=== PATIENT | female | born 1955 | race Caucasian/White ===

== ENCOUNTER 2020-06-20 11:15 | Emergency (ER) | payer MEDICARE, OTHER, SELFPAY ==
[2020-06-20 11:20] VITALS: BP 158/91; PULSE 83; RESP 20; TEMP 36.9; O2SAT 97; BMI 27.4
--- NOTE | 2020-06-20 11:40 | PC.NURSE ---
PATIENT SENT TO ER PER ALHAJI LYLES APRN FOR FURTHER EVALUATION
--- NOTE | 2020-06-20 11:43 | HMH.EDUTC ---
[facility] [place] Clinical Impression: Hypertension Qualifiers: Hypertension type: unspecified Qualified Code(s): I10 - Essential (primary) hypertension Disposition: Still a Patient Condition on Discharge: Fair Referrals: PCP,Jamila [Primary Care Provider] - Time of Disposition: 11:53 Medical Decision Making - Abiodun Inquiry Pt receiving controlled substance: No Abiodun was queried for this patient: No Vital Signs: 06/20/20 11:20 Temperature 98.4 F Temperature Source Oral Pulse Rate [Left Brachial] 83 Respiratory Rate 20 Blood Pressure [Left Arm] 158/91 H Blood Pressure Mean [Left Arm] 113 Blood Pressure Source [Left Arm] Automatic Cuff Blood Pressure Position [Left Arm] Sitting 02 Sat by Pulse Oximetry 97 Oxygen Delivery Method Room Air Medical Decision Narrative: Due to patient being symptomatic, complaining of feeling off, light flashes in left eye and heavy feeling in arms recommended that patient be transferred to the ED for further work up and evaluation Patient agreed called ED and spoke with Yoana Patient transferred to room 7 without complications or reactions for further treatment and work up [facility] [place] - General Stated complaint: BP elevated Time Seen by Provider: 06/20/20 11:43 Mode of Arrival: Ambulatory Source of Information: Patient Limitations: No Limitations Description of Symptoms (Recalled from Triage Doc. by RN): PATIENT C/O ELEVATED BLOOD PRESSURE FOR THE PAST 3 DAYS. SHE STATES SHE HAS BEEN HAVING HEADACHES, HER ARMS FEEL HEAVY, AND YESTERDAY SHE WAS SEEING A LIGHT FLASHING OUT OF CORNER OF LEFT EYE; SHE SAYS SHE DOESN'T FEEL RIGHT . SHE HAS BEEN TAKING LEFT-OVER LOSARTAN FROM WHEN SHE WAS PREVIOUSLY TREATED FOR HYPERTENSION A FEW YEARS AGO HEENT Symptoms (Recalled from RN notes): Yes Resp Symptoms (Recalled from RN notes): No Skin Symptoms (Recalled from RN notes): No MS Symptoms (Recalled from RN notes): No Functional Status (Recalled from RN notes): WNL - History of Present Illness Provider Complaint: Patient state that she was treated a few years ago for HTN States that she was Losartan States that she lost weight and her blood pressure came down so her PCP took her off her blood pressure medication States that a few months ago she noticed she wasnt feeling right so she started checking her blood pressure again and noticed it was high so she started taking the left over blood pressure medication she had at home and did not see her PCP States that for the last couple of days she has been having headache, seeing floaters and light flashes in the corner of her left eye, feeling tired and arms feeling heavy and not feeling right in her head States that she was worried this morning when she was feeling off so she called and couldnt get in to her PCP so she came in here - Related Data Home Medications Medication Instructions Recorded Confirmed losartan 25 mg tablet 25 mg PO DAILY 06/26/18 06/26/18 Previous Rx's Medication Instructions Recorded azithromycin 250 mg tablet 250 mg PO QDAY 5 Days #6 tab 06/26/18 Allergies Allergy/AdvReac Type Severity Reaction Status Date / Time acetaminophen [From Percocet] Allergy Verified 06/26/18 11:31 amoxicillin [From Augmentin] Allergy Verified 06/26/18 11:30 clavulanic acid Allergy Verified 06/26/18 11:30 [From Augmentin] oxycodone [From Percocet] Allergy Verified 06/26/18 11:31 - Worker's Comp Is this a Worker's Comp case?: No [facility] History - Hepatitis A Screen Drug use history?: No High risk sexual behaviors?: No History of sexually transmitted infection?: No Currently employed?: No Childcare worker?: No Do you have indoor plumbing?: Yes Do you have electricity?: Yes Attestation statement:: This patient has been screened for Hepatitis A risk factors. I have reviewed the patient's past medical history: Yes Medical History: Denies:: Cancer, Diabetes Mellitus Type 1, Diabetes Mellitus Type 2, MRSA Amputat
[2020-06-20 12:00] VITALS: BP 165/93; PULSE 83; O2SAT 97
[2020-06-20 12:01] VITALS: BP 184/87; PULSE 71; RESP 20; O2SAT 98; BMI 27.4
--- NOTE | 2020-06-20 12:05 | ECG_ITS ---
APPROVED REPORT Exam: Resting ECG HR:72 bpm ECG Measurements Heart Rate 72 AXES VA 142 P 70 QRSd 72 QRS 12 QT 380 T 51 QTc 416 Conclusion Normal sinus rhythm Normal ECG Electronically signed by : Angel Reyez, 06/24/2020 17:47:34
--- NOTE | 2020-06-20 12:05 | CT_ITS ---
PROCEDURE: CT HEAD/BRAIN WO CON Referring Doctor: Chirag Perkins Patient Age:64Y CLINICAL INDICATION: headache/ weakness Left eye pain. Left sided side pain. Smoker. COMPARISON: No exams were available for comparison TECHNIQUE: No IV contrast Standard axial images were initially obtained . Due to note area density at geraldine felt to be streak artifact a follow-up spiral CT of the head was performed with axial, thick MIP sagittal and coronal reconstructions of from this 2nd image set submitted for review as well the. All CT scans at the facility use one or more dose reduction, viz: automated exposure control, ma/kV adjustment per patient size (including targeted exams where dose is matched to indication, i.e. head), or iterative reconstruction technique. FINDINGS: No acute intracranial findings.No territorial infarct No discrete intracranial hemorrhage. No hydrocephalus.The ventricles and basal cisterns appear clear and satisfactory. No mass or midline shift nor mass effect. Minimal tiny physiologic calcification basal ganglia bilaterally most evident on right. Question some borderline low-density changes could reflect some subtle chronic deep white matter changes but equivocal. No subdural or extra-axial fluid collection is evident. Posterior fossa. Cerebellar hemispheres appear normal. On the initial scan there is a linear area increased density central geraldine on axial image 15 which was felt to be due to streak artifact from the dense petrous ridges particularly given the linear character. However given the history of hypertension in the overall symptoms in this patient we did have her come back up for a spiral CT of the head which inherently reduces streak artifact. With these repeat images the the geraldine appears normal and is linear dense artifact through the geraldine went away. Geraldine appears normal on this repeat sequence Skull intact- calvarium unremarkable appearance. Nomastoid effusions. Mastoid air cells are well developed and clear. Middle ear clear. IAC's symmetric. Paranasal sinuses. Only barely evident scant mucosal thickening a suggested posterior left frontal sinus axial image 14, [address] on the initial head CT,. With only borderline/scant mucosal thickening ethmoid air cells.. Small 11 mm retention cyst at floor right maxillary sinus noted with only very subtle a mucosal thickening thickening along lateral wall and near ostia of right maxillary sinus. No prominent findings at the paranasal sinuses. No air-fluid levels The left orbit and left globe unremarkable on these CT survey images IMPRESSION: No acute intracranial findings. (Because of a curious linear high density feature at geraldine felt due to streak artifact on the initial standard CT head study, a repeat spiral CT head scan was performed to confirm this impression. The geraldine and posterior fossa and entire brain appear satisfactory on the repeat spiral CT head. Only tiny scant and significant physiologic calcification of basal ganglia bilaterally noted on both scans) . Dictated by: Hugo Mcconnell MD 06/20/2020 13:26 Hugo Mcconnell MD in [place] 06/20/2020 13:26
--- NOTE | 2020-06-20 12:05 | XR_ITS ---
PROCEDURE: XR CHEST 2V Referring Doctor: Chirag Perkins Patient Age:64Y CLINICAL HISTORY: weakness Weakness smoker high blood pressure COMPARISON: No exams were available for comparison FINDINGS: The lungs are well expanded and clear with nothing definitely acute. No pleural effusion, no pneumothorax. Only note minor coarsening markings suggests which may reflect some minor chronic changes related to history of smoking but nothing. The heart is upper normal in size. Normal to upper normal pulmonary vascularity . The arabella and mediastinal structures satisfactory. Calcified granuloma at the right mid lung measuring 6.5 mm. Reflects benign old granulomatous disease but Chest wall in T-spine appears satisfactory. Faint atherosclerotic calcification aorta. . IMPRESSION: Nothing definitely acute Suggestion minor chronic lung changes likely reflecting history of smoking, the with subtle coarsening markings bilaterally Heart upper normal in size.. Upper normal pulmonary vascularity Dictated by: Hugo Mcconnell MD 06/20/2020 16:12 Hugo Mcconnell MD in [place] 06/20/2020 16:12
--- NOTE | 2020-06-20 12:20 | PC.NURSE ---
pt to rad
[2020-06-20 12:31] LABS: Basophils % 0.5 % (0.1-2.0); Eosinophils # 0.2 K/mm3 (0.0-0.4); Eosinophils % 3.2 % (0.1-12.0); Hematocrit 41.6 % (37.0-47.0); Hemoglobin 13.2 g/dL (12.2-16.2); Lymphocytes # 1.6 K/mm3 (0.7-4.5); Lymphocytes % 29.2 % (10-50); Mean Corpuscular HGB Conc 31.8 g/dL (31.8-35.4); Mean Corpuscular Hemoglobin 29.4 pg (27.0-31.2); Mean Corpuscular Volume 92.4 fl (81-99); Mean Platelet Volume 8.1 fl (7.4-10.4); Monocytes # 0.3 K/mm3 (0.1-1.0); Monocytes % 5.4 % (1.7-9.3); Neutrophils # 3.3 K/mm3 (1.8-7.8); Neutrophils % 61.6 % (37.0-80.0); Platelet Count 286 K/mm3 (142-424); Red Cell Distribution Width 13.9 % (11.5-17.5); White Blood Count 5.4 K/mm3 (4.8-10.8)
[2020-06-20 12:32] LABS: Chloride 108 mmol/L (98-107); Sodium 138 mmol/L (136-145)
[2020-06-20 12:35] LABS: Alanine Aminotransferase 32 U/L (12-78); Albumin Level 4.4 g/dl (3.5-5.0); Albumin/Globulin Ratio 1.5 (1.1-1.8); Alkaline Phosphatase 74 U/L (38-126); Aspartate Amino Transferase 27 U/L (14-36); Bilirubin,Total 0.6 mg/dl (0.2-1.3); Blood Urea Nitrogen 12 mg/dl (7-17); Calcium 9.6 mg/dl (8.4-10.2); Carbon Dioxide 26 mmol/L (22.0-30.0); Creatinine Clearance Estimated 59 mL/min (50-200); Estimated Glomerular Filt Rate 100 ml/min (>60); GFR (African American) 121 ML/MIN (>60); Glucose 122 mg/dl (74-100); Total Protein,Serum 7.4 g/dl (6.3-8.2)
[2020-06-20 12:50] LABS: Troponin I < 0.01 ng/ml (0.00-0.034)
[2020-06-20 13:01] VITALS: BP 142/80; PULSE 70; O2SAT 95
[2020-06-20 14:00] VITALS: BP 130/69; PULSE 62; RESP 20; O2SAT 95
--- NOTE | 2020-06-20 14:19 | HMH.EDGENADL ---
ED Disposition Clinical Impression: Hypertension Qualifiers: Hypertension type: unspecified Qualified Code(s): I10 - Essential (primary) hypertension Migraine Qualifiers: Migraine type: without aura Status migrainosus presence: without status migrainosus Intractability: not intractable Qualified Code(s): G43.009 - Migraine without aura, not intractable, without status migrainosus Disposition: Home, Self-Care Condition on Discharge: Good Instructions: Hypertension (Alternative Therapy) Referrals: PCP,No [Primary Care Provider] - Angel Reyez MD [Staff Physician] - - Critical Care Critical Care Time: No Attestation: On 06/20/20, the high probability of a clinically significant, sudden or life threatening deterioration of the following system(s) required my full and direct attention, intervention and personal management. The time I documented below is in addition to time spent performing reported procedures but includes the following listed in this critical care notation. Medical Decision Making - Medical Records Medical records reviewed: Yes: I reviewed the patient's medical records. - Abiodun Inquiry Pt receiving controlled substance: No Vital Signs: 06/20/20 11:20 06/20/20 12:00 06/20/20 12:01 Temperature 98.4 F Temperature Source Oral Pulse Rate [Left Brachial] 83 83 71 Respiratory Rate 20 20 Blood Pressure [Left Arm] 158/91 H 165/93 H 184/87 H Blood Pressure Mean [Left Arm] 113 117 119 Blood Pressure Source [Left Arm] Automatic Cuff Automatic Cuff Automatic Cuff Blood Pressure Position [Left Arm] Sitting Sitting Sitting 02 Sat by Pulse Oximetry 97 97 98 Oxygen Delivery Method Room Air Room Air Room Air 06/20/20 13:01 06/20/20 14:00 Temperature Temperature Source Pulse Rate [Left Brachial] 70 62 Respiratory Rate 20 Blood Pressure [Left Arm] 142/80 H 130/69 Blood Pressure Mean [Left Arm] 100 89 Blood Pressure Source [Left Arm] Automatic Cuff Blood Pressure Position [Left Arm] Sitting 02 Sat by Pulse Oximetry 95 95 Oxygen Delivery Method Room Air Room Air - Lab Data Lab Results 06/20/20 12:15: WBC 5.4, RBC 4.50, Hgb 13.2, Hct 41.6, MCV 92.4, MCH 29.4, MCHC 31.8, RDW 13.9, Plt Count 286, MPV 8.1, Neut % (Auto) 61.6, Lymph % (Auto) 29.2, [place] % (Auto) 5.4, Eos % (Auto) 3.2, Baso % (Auto) 0.5, Neut # (Auto) 3.3, Lymph # (Auto) 1.6, [place] # (Auto) 0.3, Eos # (Auto) 0.2, Baso # (Auto) 0.0 06/20/20 12:15: Sodium 138, Potassium 4.0, Chloride 108 H, Carbon Dioxide 26, Anion Gap 8.0, BUN 12, Creatinine 0.60, Estimated Creat Clear 59, Estimated GFR 100, Est GFR ( Amer) 121, Glucose 122 H, Calcium 9.6, Total Bilirubin 0.6, AST 27, ALT 32, Alkaline Phosphatase 74, Troponin I < 0.01, Total Protein 7.4, Albumin 4.4, Globulin 3.0, Albumin/Globulin Ratio 1.5 Result diagrams: 06/20/20 12:15 06/20/20 12:15 Orders (Tests/Meds): ORDERS Category Date Time Status XR chest 2V Stat Exams 06/20/20 12:05 Taken Troponin I Q3H Lab 06/20/20 15:15 Ordered Troponin I Q3H Lab 06/20/20 18:15 Ordered - Radiology Data #1 Image(s): Chest Image Reviewed: Yes I reviewed the patient's radiology results, Yes I have reviewed radiologist's interpretation Preliminary Findings: Normal/NAD - CT Data CT Scan: Head Time Received: 14:[address] Reviewed: Yes: I have reviewed the patient's CT results, I have viewed the radiologist's interpretation Preliminary Findings: Normal/NAD - ECG Data Tracing #1 I reviewed this ECG and interpreted as documented below: ECG initial impression date: 06/20/20 ECG initial impression time: 12:07 ECG normal with no acute: arrhythmias, ischemia, conduction abnormalities, chamber hypertrophy - Reevaluation(s) Time: 14:31 Reevaluation #1: On reevaluation, patient is feeling better. Blood pressure is improved. Repeat neurologic exam is normal. Patient needs follow-up with PCP. Given strict return precautions. Verbalized understanding. Medical
[2020-06-20 14:36] VITALS: BP 130/69; PULSE 62; RESP 20; TEMP 36.9; O2SAT 95
== END 2020-06-20 14:38 | disposition home or self-care (01) ==
LOC: UTC 11:53 → ER 11:58
PROVIDERS: Emergency Provider Emergency Medicine
DX: G43.009 Migraine without aura, not intractable, without status migrainosus (principal); I10 Essential (primary) hypertension; F17.210 Nicotine dependence, cigarettes, uncomplicated; Z88.5 Allergy status to narcotic agent
CPT/HCPCS: 70450; 71046; 80053; 84484; 85025; 93005; 99283

== ENCOUNTER → 2020-08-05 10:08 | Outpatient (CLI) | payer MEDICARE, OTHER, SELFPAY ==
[2020-08-05 11:00] LABS: Coronavirus 19 IgG Antibody Negative (Negative); Coronavirus 19 IgM Antibody Negative (Negative)
== END ==
PROVIDERS: Visit Provider Internal Medicine Gastroenterology
DX: Z01.812 Encounter for preprocedural laboratory examination (principal); Z20.822 Contact with and (suspected) exposure to COVID-19; Z12.11 Encounter for screening for malignant neoplasm of colon
CPT/HCPCS: 36415; 86328

== ENCOUNTER 2020-08-07 09:54 | Day surgery (SDC) | payer MEDICARE, OTHER, SELFPAY ==
[2020-08-05 14:07] VITALS: BMI 28.3
[2020-08-07 10:10] VITALS: BP 125/76; PULSE 72; RESP 18; TEMP 36.3; O2SAT 96
[2020-08-07 10:52] VITALS: O2SAT 98
--- NOTE | 2020-08-07 10:54 | HMH.ANESCL ---
[facility] Anesthesia Checklist - Structural Data Admitted From: Home Planned Operative Procedure/s: colonoscopy Consent for Planned Operative Procedure(s) Verified: Yes - Airway Assessment C-Spine Mobility Assessed: Yes TMJ Mobility Assessed: Yes Dentition: Good Dentition - Neurological Assessment Level of Consciousness: Awake, Alert, Appropriate - Anesthesia Plan Anesthesia Risk discussed: Yes Anesthesia Plan: Verified ASA Class: II Anesthesia Type: MAC [facility] History I have reviewed the patient's past medical history: Yes Medical History: Reports:: Cancer (skin) Denies:: Diabetes Mellitus Type 1, Diabetes Mellitus Type 2, Internal Pacemaker, MRSA, Seizures *Have you ever received a pneumonia vaccine?: No *Have you received a flu vaccine this season?: No Anesthesia experience/problems:: none Other Surgeries: No: Pacemaker Amputation: No Fractures: No - *Social History Last grade of school completed: High school graduate Smoking Status: Current every day smoker Tobacco Type: cigarettes # Packs/Day (cigarettes): 1 Alcohol Intake: never Substance Use Type: denies use *Occupational Status:: retired Housing: house Household Members: none *Travel in the last 8 weeks: None Family Hx:: Non-contributory
--- NOTE | 2020-08-07 11:22 | P.PCN_ITS ---
[facility] Procedure Note Procedure Note:: Colonoscopy Procedure Report: Colonoscopy with cold snare polypectomy Endoscopist: Ilya Sampson II, MD Referring physician: VICTORINO Martinez Date of Procedure: August 07, 2020 Equipment: Olympus 190 variable stiffness pediatric colonoscope Sedation: MAC sedation Indication: Mrs. Reese is a 64-year-old female who is here for follow-up screening/surveillance colonoscopy. The patient did have a colonoscopy with sc 15 or 16 years ago. She reports having some more recent left lower abdominal pain and diverticulitis. The patient reports no rectal bleeding, weight loss or family history of colon cancer. Procedure: Prior to the procedure, a history and physical exam was performed, and patient's medications and allergies were reviewed. The risks, benefits and alternatives of the sedation and procedure were discussed with the patient. All questions were answered and informed consent was obtained. The patient was brought to the procedure room. Patient identification and proposed procedure were verified by the physician and the nurse. The patient was placed in a left lateral decubitus position and the scope was passed under direct vision. Throughout the procedure, the patient's blood pressure, pulse, and oxygen saturations were monitored continuously. The colonoscopy was accomplished without difficulty. The patient tolerated the procedure well. Findings: On digital rectal examination there was normal rectal tone. There were no external hemorrhoids. The colonoscope was introduced through the anal canal to the rectum and advanced to the cecum. The ileocecal valve and appendiceal orifice were identified. The scope was advanced a short distance into the ileum which appeared grossly normal. The scope was then withdrawn into the colon. The cecum, ascending and transverse colon and mucosa were grossly normal. There were some lipomas x2 of the proximal ascending colon. There were scattered extensive diverticuli throughout the descending and sigmoid colon (LEFT colon). There was a rectosigmoid polyp (6 to 7 mm) removed via cold snare polypectomy. The rectum itself was normal. Upon retroflexion within the rectum there were grade 1-2 internal hemorrhoids. The preparation was excellent throughout with [place] Preparation Score of 9. The cecal time was 12 minutes. Impression: 1. Rectosigmoid polyp 2. Left-sided diverticulosis 3. Ascending colon lipoma 4. Grade 1-2 internal hemorrhoids Plan: I will follow up the polyp pathology and recommend repeat colonoscopy again in 7-10 years based upon the polyp histology. I would encourage bulking fiber supplementation on a long-term daily maintenance basis.
[2020-08-07 11:25] VITALS: BP 88/47; PULSE 75; RESP 18; TEMP 36.1; O2SAT 94
[2020-08-07 11:35] VITALS: BP 98/53; PULSE 64; RESP 18; O2SAT 97
[2020-08-07 11:45] VITALS: BP 113/84; PULSE 59; RESP 18; O2SAT 97
[2020-08-07 12:14] VITALS: BP 103/64; PULSE 64; RESP 18; O2SAT 100
== END 2020-08-07 12:15 | disposition home or self-care (01) ==
LOC: OUTP 09:57
PROVIDERS: PCP Nurse Practitioner; Visit Provider Internal Medicine Gastroenterology
PROC: 0DJD8ZZ Inspection of Lower Intestinal Tract, Via Natural or Artificial Opening Endoscopic (ICD-10-PCS; CPT 45378; principal; 2020-08-07 11:00)
DX: Z12.11 Encounter for screening for malignant neoplasm of colon (principal); K64.0 First degree hemorrhoids; K63.5 Polyp of colon; K57.30 Diverticulosis of large intestine without perforation or abscess without bleeding; D17.79 Benign lipomatous neoplasm of other sites; Z87.19 Personal history of other diseases of the digestive system; Z85.828 Personal history of other malignant neoplasm of skin; Z72.0 Tobacco use
CPT/HCPCS: 45385; 88305

== ENCOUNTER 2022-04-09 10:07 | Emergency (ER) | payer MEDICARE, OTHER, SELFPAY ==
[2022-04-09 10:45] VITALS: BP 142/75; PULSE 79; RESP 20; TEMP 37; O2SAT 97; BMI 29.2
--- NOTE | 2022-04-09 11:20 | EXP.UTC ---
Discharge Plan Disposition Patient Disposition: Home, Self-Care Condition: Good Prescriptions Prescriptions: New cephalexin [cephalexin] 500 mg tablet 500 mg PO BID 7 Days Qty: 14 0RF prednisone [prednisone] 20 mg tablet 20 mg PO BID Qty: 10 0RF No Action losartan 25 mg tablet 25 mg PO DAILY Referrals Follow up/Referrals: Michelle Shaw APRN [Primary Care Provider] - See instructions Activity Restrictions/Add. Instructions Additional Instructions/Restrictions: Start antibiotic as soon as possible and be sure to take as ordered for full length of time even though he should start feeling better in 24-48 hours. Tylenol or Motrin as needed for pain or fever Encourage fluids, water, Gatorade, Powerade, Pedialyte if infant/toddler/child Warm compresses often helps when placed over ear Return immediately for new or worsening symptoms no noticeable improvement in 48-72 hours and in 10-14 days to ensure the ears are return to baseline. Follow-up with primary care Clinical Impressions Clinical Impression: Otitis media Instructions Patient Instructions: Middle Ear Infection Discharge ED Provider: Barbi ([facility])[place] [facility] [place] General Stated complaint: cough, vomiting, ear pain, nausea, lung pain Mode of Arrival: Ambulatory Source of Information: Patient Limitations: No Limitations Time Seen by Provider: 04/09/22 11:20 Description of Symptoms (Recalled from Triage Doc. by RN): PATIENT C/O COUGH, VOMITING (D/T COUGH), BODY ACHES, EAR PAIN AND SINUS PAIN SINCE MONDAY NIGHT HEENT Symptoms (Recalled from RN notes): Yes Resp Symptoms (Recalled from RN notes): Yes Skin Symptoms (Recalled from RN notes): No MS Symptoms (Recalled from RN notes): No Functional Status (Recalled from RN notes): WNL History of Present Illness Provider Complaint: 66 yr old female presents for cough, clear congestion, sore throat, rt ear pain and vomiting due to cough Related Data Home Medications Medication Instructions Recorded Confirmed losartan 25 mg tablet 25 mg PO DAILY Hypertension 06/26/18 04/09/22 Previous Rx's Medication Instructions Recorded cephalexin 500 mg tablet 500 mg PO BID 7 days #14 tabs 04/09/22 prednisone 20 mg tablet 20 mg PO BID #10 tabs 04/09/22 Allergies Allergy/AdvReac Type Severity Reaction Status Date / Time acetaminophen [From Percocet] Allergy Verified 08/05/20 14:06 amoxicillin [From Augmentin] Allergy Verified 08/05/20 14:06 clavulanic acid Allergy Verified 08/05/20 14:06 [From Augmentin] oxycodone [From Percocet] Allergy Verified 08/05/20 14:06 Worker's Comp Is this a Worker's Comp case?: No [facility] Disclaimer: The information contained in this section may have been updated after the patient was seen, as this information can be updated by other users. Medical History (Reviewed 04/09/22 @ 11:21 by Eula Landon ([facility]), [employer]) Hypertension Surgical History (Reviewed 04/09/22 @ :21 by Eula Landon ([facility]), [employer]) History of hysterectomy Social History (Reviewed 04/09/22 @ 11:21 by Eula Landon ([facility]), P[employer]) Smoking Status: Current every day smoker tobacco type: cigarettes packs per day: 1 alcohol intake: never substance use type: denies use current occupational status: retired Travel in the last 8 weeks: None household members: none housing: house current occupational exposures/hazards: No caffeine: Yes ROS Obtained: Yes All systems reviewed & no additional complaints except as documented Constitutional Constitutional: Reports system reviewed and no additional complaints, except as documented, Reports body ache and Reports fever(s) Eyes Eyes: Reports system reviewed and no additional complaints, except as documented ENT Ears, Nose, Mouth, and Throat: Reports system reviewed and no additional complaints, except as documented, Reports as per HPI, Reports otalgia, Reports sinus pain, Reports sinus pressure and Reports sore
[2022-04-09 11:35] VITALS: BP 142/75; PULSE 79; RESP 20; TEMP 37; O2SAT 97
== END 2022-04-09 11:37 | disposition home or self-care (01) ==
PROVIDERS: Emergency Provider Nurse Practitioner Family; PCP Nurse Practitioner
DX: H66.90 Otitis media, unspecified, unspecified ear (principal)
CPT/HCPCS: 99212; G0463

== ENCOUNTER → 2023-01-26 10:17 | Outpatient (CLI) | payer MEDICARE, OTHER, SELFPAY ==
[2023-01-26 10:53] LABS: Basophils % 0.5 % (0.1-2.0); Eosinophils # 0.3 K/mm3 (0.0-0.4); Eosinophils % 3.1 % (0.1-12.0); Hematocrit 46.9 % (37.0-47.0); Hemoglobin 15.3 g/dL (12.2-16.2); Lymphocytes # 2.3 K/mm3 (0.7-4.5); Lymphocytes % 29.2 % (10-50); Mean Corpuscular HGB Conc 32.6 g/dL (31.8-35.4); Mean Corpuscular Hemoglobin 29.5 pg (27.0-31.2); Mean Corpuscular Volume 90.6 fl (81-99); Mean Platelet Volume 8.2 fl (7.4-10.4); Monocytes # 0.5 K/mm3 (0.1-1.0); Neutrophils # 4.9 K/mm3 (1.8-7.8); Neutrophils % 61.2 % (37.0-80.0); Platelet Count 360 K/mm3 (142-424); Red Blood Count 5.18 M/mm3 (4.20-5.40); Red Cell Distribution Width 13.2 % (11.5-17.5)
[2023-01-26 11:51] LABS: Chloride 102 mmol/L (98-107)
[2023-01-26 11:52] LABS: Potassium 4.2 mmoL/L (3.5-5.1); Sodium 138 mmol/L (136-145)
[2023-01-26 11:54] LABS: Alanine Aminotransferase 45 U/L (12-78); Anion Gap 12.2 mEq/L (5-15); Aspartate Amino Transferase 36 U/L (14-36); Bilirubin,Unconjugated 0.3 mg/dL (0.0-1.1); Blood Urea Nitrogen 12 mg/dl (7-17); Carbon Dioxide 28 mmol/L (22.0-30.0); Estimated Glomerular Filt Rate 71 ml/min (>60); GFR (African American) 86 ML/MIN (>60)
[2023-01-26 11:55] LABS: Albumin Level 4.3 g/dl (3.5-5.0); Alkaline Phosphatase 93 U/L (38-126); Bilirubin,Direct 0.3 mg/dl (0.0-0.4); Bilirubin,Indirect 0.2 mg/dL (0.0-0.9); Bilirubin,Total 0.5 mg/dl (0.2-1.3); Calcium 9.6 mg/dl (8.4-10.2); Chol/HDL Ratio 3.4 (1-3.5); Cholesterol 154 mg/dl (140-200); Glucose 102 mg/dl (74-100); HDL Cholesterol 45 mg/dl (40-60); Triglycerides 134 mg/dl (30-150); VLDL Cholesterol 27 mg/dL (0-40)
[2023-01-26 12:06] LABS: Direct LDL Cholesterol 78.66 mg/dL (100-129)
[2023-01-26 12:13] LABS: Free T4 (Free Thyroxine) 1.02 ng/dl (0.78-2.19)
[2023-01-26 12:26] LABS: Thyroid Stimulating Hormone 1.69 uIU/mL (0.465-4.68)
== END ==
PROVIDERS: PCP Nurse Practitioner; Visit Provider Internal Medicine
DX: F17.200 Nicotine dependence, unspecified, uncomplicated (principal); J44.9 Chronic obstructive pulmonary disease, unspecified; M79.601 Pain in right arm; M79.602 Pain in left arm; R00.2 Palpitations; R07.89 Other chest pain; R42 Dizziness and giddiness; R53.83 Other fatigue; R94.31 Abnormal electrocardiogram [ECG] [EKG]; Z82.49 Family history of ischemic heart disease and other diseases of the circulatory system; I63.9 Cerebral infarction, unspecified; E11.9 Type 2 diabetes mellitus without complications; I11.9 Hypertensive heart disease without heart failure; R06.09 Other forms of dyspnea
CPT/HCPCS: 36415; 80048; 80061; 80076; 84439; 84443; 85025; 93225

== ENCOUNTER → 2023-02-16 08:57 | Outpatient (CLI) | payer MEDICARE, OTHER, SELFPAY ==
--- NOTE | 2023-02-16 08:57 | CA_ITS ---
APPROVED REPORT EXAM: Comprehensive 2D, Doppler, and color-flow Echocardiogram Inventory Associate: Jeanie Bourne CRT Ht: 5 ft 2 in Wt: 157lbs BSA: 1.72 BP: 122/80 mmHg Indications: Abnormal ECG, Chest Pain, COPD, Fatigue, Hypertension/HDD, SMOKER 2D Dimensions LVOT 2.09 cm (M/F) 1.5-2.5 LA Volume 28.70 mL LA Volume Index 16.20 mL/m2 (M/F) 16-34 M-Mode Dimensions RVDd 2.66 cm (0.9-2.6) LA Diam 2.91 cm (1.9-4.0) LVDd 3.69 cm (3.5-5.7) Ao Diam 4.16 cm (2.0-3.7) LVDs 1.82 cm (3.5-5.7) IVSd 2.10 cm (0.6-1.1) PWd 0.94 cm (0.6-1.1) EF (Teich) 82.70% FS 50.70% EDV (Teich) 57.80 mL TAPSE 2.14 (<1.7) ESV (Teich) 10.00 mL LV Diastology E Decel Time 227.00 (160-240 msec) E/A Ratio 0.72 MED E' 6.80 (< 7 cm/sec) MED A' 9.40 cm/s E'/MED E' Ratio 8.38 (>14) LAT E' 8.10 (<10 cm/sec) LAT A' 12.90 cm/s E/LAT E' Ratio 7.04 (>14) Aortic Valve AO Peak GR. 5.60 mmHg Mitral Valve MV A Velocity 79.00 (40-130 cm/s) E/A Ratio 0.72 MV Decel. Time 227.00 (160-240 ms) Pulmonary Valve PV Peak Velocity 149.00 (50-150 cm/s) Tricuspid Valve TR P. Velocity 185.00 cm/s RAP Estimate 10.00 mmHg RVSP 23.70 mmHg Left Ventricle The left ventricle is normal size. The left ventricular systolic function is normal. The left ventricular ejection fraction is within the normal range. There is increased LV wall thickness. There is normal LV segmental wall motion. Transmitral Doppler flow pattern suggests impaired LV relaxation. LVEF is 65%. Right Ventricle The right ventricle is normal size. The right ventricular systolic function is normal. Atria The left atrium size is normal. The right atrium size is normal. There is no Doppler evidence of interatrial shunt. Aortic Valve The aortic valve is mildly thickened. There is no aortic valvular stenosis. No aortic regurgitation is present. Mitral Valve The mitral valve is normal in structure. No evidence of mitral valve stenosis. Trace mitral regurgitation. Tricuspid Valve The tricuspid valve leaflets are thin and pliable. Trace tricuspid regurgitation. There is insufficient TR jet to estimate RVSP. Pulmonic Valve The pulmonary valve is normal in structure. Trace pulmonic regurgitation. Great Vessels The aortic root is normal in size. The ascending aorta is normal in size. The IVC is not well visualized. Pericardium There is no pericardial effusion. Other Information Study Quality: Fair Conclusion Normal biventricular systolic function. No significant valvular stenosis or regurgitation. Electronically signed by : Chrissy Faith MD 02/18/2023 21:57:38
== END ==
PROVIDERS: PCP Nurse Practitioner; Visit Provider Internal Medicine
DX: F17.200 Nicotine dependence, unspecified, uncomplicated (principal); I10 Essential (primary) hypertension; J44.9 Chronic obstructive pulmonary disease, unspecified; M79.601 Pain in right arm; M79.602 Pain in left arm; R00.2 Palpitations; R06.09 Other forms of dyspnea; R07.89 Other chest pain; R42 Dizziness and giddiness; R53.83 Other fatigue; R94.31 Abnormal electrocardiogram [ECG] [EKG]; Z82.49 Family history of ischemic heart disease and other diseases of the circulatory system
CPT/HCPCS: 93306

== ENCOUNTER 2023-10-10 18:11 | Emergency (ER) | payer MEDICARE, OTHER, SELFPAY ==
--- NOTE | 2023-10-10 18:11 | ECG_ITS ---
APPROVED REPORT Exam: Resting ECG HR:104 bpm ECG Measurements Heart Rate 104 AXES MS 144 P 65 QRSd 85 QRS 3 QT 326 T 52 QTc 386 Conclusion SINUS TACHYCARDIA POSSIBLE ANTERIOR MYOCARDIAL INFARCTION , PROBABLY OLD [30 ms Q WAVE IN V3/V4, OR R < 0.2 mV IN V4] POSSIBLE INFERIOR MYOCARDIAL INFARCTION , PROBABLY OLD [30 ms Q WAVE IN II/aVF] ABNORMAL RHYTHM ECG Electronically signed by : JALEN PRASAD, 10/10/2023 20:17:38
[2023-10-10 18:18] VITALS: BP 177/100; PULSE 119; RESP 18; TEMP 36.9; O2SAT 93; BMI 29.2
--- NOTE | 2023-10-10 18:19 | CT_ITS ---
PROCEDURE INFORMATION: Exam: CTA Neck With Contrast Exam date and time: 10/10/2023 6:41 PM Age: 68 years old Clinical indication: Pain; Other: Neck; Additional info: L neck pain TECHNIQUE: Imaging protocol: Computed tomographic angiography of the neck with contrast. Exam focused on the cervical segments of the vasculature. 3D rendering (Not supervised by radiologist): MIP and/or 3D reconstructed images were created by the technologist. Radiation optimization: All CT scans at this facility use at least one of these dose optimization techniques: automated exposure control; mA and/or kV adjustment per patient size (includes targeted exams where dose is matched to clinical indication); or iterative reconstruction. Contrast material: ISO 370; Contrast volume: 100 ml; Contrast route: INTRAVENOUS (IV); COMPARISON: CT ANGIO CHEST 10/10/2023 6:41 PM FINDINGS: Right common carotid artery: No stenosis. No dissection or occlusion. Right internal carotid artery: Trace proximal right ICA atherosclerosis does not contribute to stenosis. No dissection. Right external carotid artery: No occlusion or stenosis of the origin. Left common carotid artery: No stenosis. No dissection or occlusion. Left internal carotid artery: No stenosis of the extracranial segment. No dissection or occlusion. Left external carotid artery: Atherosclerosis at the origin of the left ECA not contributing to stenosis. Right vertebral artery: No stenosis. No dissection or occlusion. Mild atherosclerosis at the origin. Left vertebral artery: No stenosis. No dissection or occlusion. Pharynx: Postinfectious postinflammatory calcifications in the right palatine tonsil. Soft tissues: Normal. No significant soft tissue swelling. Bones/joints: The cervical spine demonstrates moderate degenerative changes. IMPRESSION: 1. No acute vascular findings in the neck. 2. 0% right ICA stenosis. 3. 0% left ICA stenosis. 4. The vertebral arteries are patent without stenoses. REFERENCES: NASCET CRITERIA. The degree of stenosis in the cervical segment of the internal carotid artery is based on NASCET criteria. Normal is no stenosis. Mild is less than 50% stenosis. Moderate is 50-69% stenosis. Severe is 70% to 99% stenosis. Total occlusion is no detectable patent lumen.
--- NOTE | 2023-10-10 18:19 | CT_ITS ---
PROCEDURE INFORMATION: Exam: CTA Chest With Contrast Exam date and time: 10/10/2023 6:41 PM Age: 68 years old Clinical indication: Pain; Chest pressure; Additional info: Chest discomfort to L shoulder blade TECHNIQUE: Imaging protocol: Computed tomographic angiography of the chest with contrast. Exam focused on the arteries. 3D rendering (Not supervised by radiologist): MIP and/or 3D reconstructed images were created by the technologist. Radiation optimization: All CT scans at this facility use at least one of these dose optimization techniques: automated exposure control; mA and/or kV adjustment per patient size (includes targeted exams where dose is matched to clinical indication); or iterative reconstruction. Contrast material: ISO 370; Contrast volume: 100 ml; Contrast route: INTRAVENOUS (IV); COMPARISON: CR XR CHEST 2V 06/20/2020 12:11 PM FINDINGS: Pulmonary arteries: Normal. No pulmonary emboli. Aorta: Unremarkable. No aortic aneurysm. No aortic dissection. Lungs: Mild centrilobular emphysematous changes with an apical gradient is present. Dependent bilateral lung base opacities favor atelectasis. Right upper lobe calcified nodule unchanged from prior exam. Pleural spaces: Unremarkable. No pneumothorax. No pleural effusion. Heart: Unremarkable. No cardiomegaly. No pericardial effusion. Lymph nodes: Unremarkable. No enlarged lymph nodes. Liver: There is diffuse hypoattenuation of the liver compatible with moderate hepatic steatosis. Kidneys and ureters: Left renal Bosniak 1 cystic lesion that is homogeneous and fluid density (-9-20 HU), no septations or calcifications, having ramirez smooth and thin. Measurement is 14 mm. No follow-up recommended. Bones/joints: Unremarkable. No acute fracture. Soft tissues: Unremarkable. IMPRESSION: No acute findings. COMMENTS: 1. Consistent with the [employer]'s Incidental Findings Committee white paper (J Am Rajan Radiol 2018): Any incidental renal lesion less than 1 cm or classified as too small to characterize, or any incidental cystic renal lesion characterized as simple-appearing, is likely benign. No follow-up imaging is recommended for these lesions per consensus recommendations based on imaging criteria. 2. The presence of pulmonary emphysema on CT is an independent risk factor for lung cancer. In the absence of a history or active diagnosis of lung cancer, it is recommended that this patient with emphysema be evaluated for enrollment in a low dose CT lung cancer screening program.
--- NOTE | 2023-10-10 18:21 | [facility].EDCP ---
Discharge Plan Disposition Patient Disposition: Home, Self-Care Chief Complaint: Extremity Injury, Upper Prescriptions Prescriptions: No Action losartan-hydrochlorothiazide 50-12.5 mg tablet 1 tab PO DAILY rosuvastatin [Crestor] 20 mg tablet 20 mg PO DAILY montelukast [Singulair] 10 mg tablet 10 mg PO DAILY Referrals Follow up/Referrals: Provider,Referral, MD [Referring] - See instructions Activity Restrictions/Add. Instructions Additional Instructions/Restrictions: At this time it was felt you are safe to be discharged home. If new or worsening symptoms please do not hesitate to return the emergency department. If symptoms persist please follow-up with your family doctor as you are able. Clinical Impressions Clinical Impression: Acute neck pain, Arm pain, Chest discomfort Discharge ED Provider: Jairo Bloom General Chief Complaint: Extremity Injury, Upper Stated Complaint: chest pain Time Seen by Provider: 10/10/23 18:21 History of Present Illness HPI narrative: Patient is a 68-year-old female with past medical history of palpitations and atypical chest pain, COPD not on home oxygen who presents emergency department for multiple complaints. Patient was awoken at 4 AM after sleeping on her left side with left chest discomfort, left neck pain radiating down her left upper extremity and back through to her shoulder blade. It has been progressive throughout the day causing her to become concerned and present here for continued evaluation. She does not have specific chest pain she says it is just discomfort, the rest of the complaint is regards to pain described above. No cough, no sick contacts. No other acute complaints at this time. It is not worse with position or movement of her neck. Related Data Home Medications Medication Instructions Recorded Confirmed losartan 50 mg-hydrochlorothiazide 1 tab PO DAILY 01/26/23 02/23/23 12.5 mg tablet montelukast 10 mg tablet 10 mg PO DAILY 01/26/23 02/23/23 (Singulair) rosuvastatin 20 mg tablet (Crestor) 20 mg PO DAILY 01/26/23 02/23/23 Allergies Allergy/AdvReac Type Severity Reaction Status Date / Time amoxicillin [From Augmentin] Allergy Verified 02/23/23 10:32 clavulanic acid Allergy Verified 02/23/23 10:32 [From Augmentin] oxycodone [From Percocet] Allergy Verified 02/23/23 10:32 [facility] Disclaimer: The information contained in this section may have been updated after the patient was seen, as this information can be updated by other users. Medical History Hypertension Surgical History History of hysterectomy Social History Smoking Status: Current every day smoker tobacco type: cigarettes packs per day: 1 alcohol intake: never substance use type: denies use current occupational status: retired Travel in the last 8 weeks: None household members: none housing: house current occupational exposures/hazards: No caffeine: Yes ROS Obtained: Yes Systems reviewed as appropriate & no additional complaints except as documented Physical Exam General General appearance: alert and in no apparent distress Head Head exam: atraumatic and normocephalic Eye Eye exam: Present PERRL and EOMI ENT ENT exam: Present mucous membranes moist Neck Neck exam: Present normal inspection Chest Chest inspection: Present normal inspection and symmetric chest wall rise Respiratory Respiratory exam: Present normal lung sounds bilaterally; Absent respiratory distress Cardiovascular Cardiovascular exam: Present regular rate and normal rhythm Abdominal Exam Abdominal exam: Present soft; Absent tenderness Extremities Exam Extremities exam: Present normal inspection and other (Palpable left radial pulse. No asymmetric swelling of the bilateral upper extremities.) Neurological Exam Neurological exam: Present alert, oriented X3, CN II-XII intact and other (5 out of 5 strength bilateral upper and lower extremities.); Absent motor sensory deficit Psychiatric Psychiatric exam: Present normal affect Skin Skin exam: Present warm and dry HEART Score HEART Score HEART Score assessment performed?: Yes History (anamnesis): Slightly suspicious ECG: Normal Age: >65 years Risk factors: 3 or more risk factors Troponin: </= normal limit HEART Score: 4 Critical Care Critical Care Time Critical Care Time: No Medical Decision Making Abiodun Inquiry Pt receiving controlled substance: No Vital Signs Vital Signs: 10/10/23 18:18 10/10/23 18:30 Temperature 98.4 F Temperature Source Oral Pulse Rate 97 H Pulse Rate [Right Brachial] 119 H Respiratory Rate 18 22 Blood Pressure 157/89 H Blood Pressure [Right Arm] 177/100 H Blood Pressure Mean [Right Arm] 125 Blood Pressure Source [Right Arm] Automatic Cuff Blood Pressure Position [Right Arm] Sitting 02 Sat by Pulse Oximetry 93 L 95 Oxygen Delivery Method Room Air Lab Data Labs: Lab Results 10/10/23 18:17: WBC 9.2, RBC 4.40, Hgb 13.5, Hct 40.8, MCV 92.7, MCH 30.8, MCHC 33.2, RDW 13.8, Plt Count 276, MPV 7.8, Neut % (Auto) 56.6, Lymph % (Auto) 34.7, Union % (Auto) 5.5, Eos % (Auto) 2.2, Baso % (Auto) 1.1, Neut # (Auto) 5.2, Lymph # (Auto) 3.2, Union # (Auto) 0.5, Eos # (Auto) 0.2, Baso # (Auto) 0.1, Sodium 137, Potassium 3.3 L, Chloride 100, Carbon Dioxide 27, Anion Gap 13.3, BUN 10, Creatinine 0.80, Estimated Creat Clear 60, Estimated GFR 71, Est GFR ( Amer) 86, Glucose 99, Calcium 9.4, Total Bilirubin 0.5, AST 34, ALT 35, Alkaline Phosphatase 80, Troponin I < 0.01, Total Protein 7.4, Albumin 4.6, Globulin 2.8, Albumin/Globulin Ratio 1.6 10/10/23 18:17 10/10/23 18:17 Response Orders (Tests/Meds): ED MEDICATIONS Discontinued Medications Generic Name Dose Route Start Last Admin Trade Name Freq PRN Reason Stop Dose Admin Lactated Ringer's 1,000 mls @ 999 mls/hr 10/10/23 18:26 10/10/23 18:34 Lactated Ringer's 1000 Ml Bag IV 10/10/23 19:26 999 mls/hr .Q1H1M ONE Administration Iopamidol 100 ml 10/10/23 18:54 10/10/23 18:55 Iopamidol-370 (76%);100ml Bottle IV 10/10/23 18:55 100 ml ONCE ONE Administration Methocarbamol 1,000 mg 10/10/23 18:21 10/10/23 18:33 Methocarbamol 500mg Tablet PO 10/10/23 18:22 1,000 mg ONCE ONE Administration Sodium Chloride 10 ml 10/10/23 18:54 10/10/23 18:55 Sodium Chloride 0.9% 10ml Syr (Rad Only) IV 10/10/23 18:55 10 ml ONCE ONE Administration Sodium Chloride 50 ml 10/10/23 18:54 10/10/23 18:55 0.9 % Sodium Chloride 50 Ml Vial IV 10/10/23 18:55 50 ml ONCE ONE Administration ORDERS Category Date Time Status CT angio chest - dissection Stat Cat Scan 10/10/23 18:[address] angio neck Stat Cat Scan 10/10/23 18:19 Completed CBC w/Auto Diff [Complete Blood Count Auto Diff] Stat Lab 10/10/23 18:17 Completed CMP [Comprehensive Metabolic Panel] Stat Lab 10/10/23 18:17 Completed Trop I [Troponin I] Stat Lab 10/10/23 18:17 Completed Troponin I Q3H Lab 10/10/23 21:30 Ordered Troponin I Q3H Lab 10/11/23 00:30 Ordered ECG Data Tracing #1: ECG Narrative: Independently interpreted by me, rate is 104, rhythm is regular, axis is normal, no ST elevation in anatomical contiguous leads, QTc 386. MDM Narrative Medical Decision Narrative: In summary patient is a 5-year-old female past medical history described above presents emergency department for evaluation of chest discomfort, left neck pain, left upper extremity pain. Patient is hemodynamically stable nontoxic-appearing upon arrival, afebrile. Patient's left upper extremity has 5 out of 5 strength, is well-perfused has palpable left radial pulse. No asymmetric swelling to suggest DVT of the left upper extremity. Differential includes aortic dissection, neuropathy, ACS, among others. Workup be conducted with hematologic labs, CTA chest, CTA neck, EKG, troponins. Initial inventions include IV Tylenol. Initial workup reviewed by me, hematologic labs are nonactionable, mild hypokalemia which is not need to be repleted. Initial troponin undetectably low. Given duration of discomfort and not specific chest pain longer than 6 hours single troponin is reasonable and second troponin will not be repeated. CTA chest and neck no acute abnormalities. Upon repeat evaluation patient continued to be well-appearing and is appropriate for discharge at this time.
[2023-10-10 18:29] LABS: Basophils # 0.1 K/mm3 (0-0.2); Basophils % 1.1 % (0.1-2.0); Eosinophils # 0.2 K/mm3 (0.0-0.4); Eosinophils % 2.2 % (0.1-12.0); Hematocrit 40.8 % (37.0-47.0); Hemoglobin 13.5 g/dL (12.2-16.2); Lymphocytes # 3.2 K/mm3 (0.7-4.5); Lymphocytes % 34.7 % (10-50); Mean Corpuscular HGB Conc 33.2 g/dL (31.8-35.4); Mean Corpuscular Hemoglobin 30.8 pg (27.0-31.2); Mean Corpuscular Volume 92.7 fl (81-99); Mean Platelet Volume 7.8 fl (7.4-10.4); Monocytes # 0.5 K/mm3 (0.1-1.0); Monocytes % 5.5 % (1.7-9.3); Neutrophils # 5.2 K/mm3 (1.8-7.8); Neutrophils % 56.6 % (37.0-80.0); Platelet Count 276 K/mm3 (142-424); Red Cell Distribution Width 13.8 % (11.5-17.5); White Blood Count 9.2 K/mm3 (4.8-10.8)
[2023-10-10 18:30] VITALS: BP 157/89; PULSE 97; RESP 22; O2SAT 95
[2023-10-10] MEDS: METHOCARBAMOL 500MG TABLET 1000 MG PO (18:33)
[2023-10-10] MEDS: LACTATED RINGERS 1000ML 1,000 ML 999 ML IV (18:34)
[2023-10-10 18:40] LABS: Alanine Aminotransferase 35 U/L (12-78); Albumin Level 4.6 g/dl (3.5-5.0); Albumin/Globulin Ratio 1.6 (1.1-1.8); Alkaline Phosphatase 80 U/L (38-126); Anion Gap 13.3 mEq/L (5-15); Aspartate Amino Transferase 34 U/L (14-36); Bilirubin,Total 0.5 mg/dl (0.2-1.3); Blood Urea Nitrogen 10 mg/dl (7-17); Calcium 9.4 mg/dl (8.4-10.2); Carbon Dioxide 27 mmol/L (22.0-30.0); Chloride 100 mmol/L (98-107); Creatinine Clearance Estimated 60 mL/min (50-200); Estimated Glomerular Filt Rate 71 ml/min (>60); GFR (African American) 86 ML/MIN (>60); Globulin 2.8 g/dL (1.3-3.2); Glucose 99 mg/dl (74-100); Potassium 3.3 mmoL/L (3.5-5.1); Sodium 137 mmol/L (136-145); Total Protein,Serum 7.4 g/dl (6.3-8.2)
--- NOTE | 2023-10-10 18:43 | PC.NURSE ---
patient to RAD
[2023-10-10] MEDS: SODIUM CHLORIDE 0.9% 10ML SYR (RAD ONLY) 10 ML IV (18:55)
[2023-10-10] MEDS: 0.9 % SODIUM CHLORIDE 50 ML VIAL IV (18:55)
[2023-10-10] MEDS: IOPAMIDOL-370 (76%);100ML BOTTLE 100 ML IV (18:55)
[2023-10-10 19:02] LABS: Troponin I < 0.01 ng/ml (0.00-0.034)
[2023-10-10 19:31] VITALS: BP 140/78; PULSE 79; RESP 20; O2SAT 97
[2023-10-10 19:43] VITALS: BP 140/78; PULSE 72; RESP 16; TEMP 36.6; O2SAT 95
== END 2023-10-10 19:46 | disposition home or self-care (01) ==
PROVIDERS: Emergency Provider Emergency Medicine; PCP Nurse Practitioner
DX: R07.89 Other chest pain (principal); R00.0 Tachycardia, unspecified; M54.2 Cervicalgia; M79.602 Pain in left arm; M54.6 Pain in thoracic spine; E87.6 Hypokalemia; J44.9 Chronic obstructive pulmonary disease, unspecified; F17.210 Nicotine dependence, cigarettes, uncomplicated; I10 Essential (primary) hypertension
CPT/HCPCS: 70498; 71275; 80053; 84484; 85025; 93005; 96360; 99285; J7120; Q9967